=== PATIENT | female | born 1940 | race Asian ===

== ENCOUNTER 2025-06-02 11:00 | Outpatient (RCR) | payer MEDICARE, BC, SELFPAY ==
[2025-05-01 16:02] LABS: Hematocrit* 43.7 % (33.0-51.0); Hemoglobin* 13.6 gm/dL (12.0-16.0); Immature Granulocytes Abs Auto 0.01 K/uL (0.00-0.30); Immature Granulocytes Pct Auto 0.1 %; Mean Corpuscular HGB Conc 31 gm/dL (32-36); Mean Corpuscular Hemoglobin 28 pg (26-34); Mean Corpuscular Volume 89 fL (80-100); RDW Coefficient of Variation % 14.7 % (11.5-15.5); Red Blood Count* 4.90 m/uL (4.00-5.20); White Blood Count* 8.96 K/uL (4.50-11.00)
[2025-05-01 16:04] LABS: Lymphocytes Absolute Auto 4.10 K/uL (0.90-2.90)
[2025-05-01 16:05] LABS: Slide Review Reflex No
[2025-05-01 16:27] LABS: Albumin* 4.8 g/dL (3.3-5.0); Chloride* 104 mmol/L (96-114); Potassium* 4.9 mmol/L (3.6-5.1); Sodium* 139 mmol/L (135-149)
[2025-05-01 16:30] LABS: Alanine Aminotransferase* 16 U/L (4-35); Alkaline Phosphatase* 59 U/L (40-150); Anion Gap 9 mEq/L (7-15); Aspartate Amino Transferase* 28 U/L (12-35); Bilirubin Total* 0.9 mg/dL (0.1-1.5); Blood Urea Nitrogen* 10 mg/dL (7-30); Calcium* 10.2 mg/dL (8.4-10.6); Carbon Dioxide* 26 mmol/L (20-32); Creatinine* 0.7 mg/dL (0.5-1.5); Est. Creatinine Clearance* 32.73; Estimated Glomerular Filt Rate 86 ml/min; Glucose* 104 mg/dL (60-115); Total Protein* 8.6 g/dL (6.0-8.3)
[2025-05-02 11:49] VITALS: BP 161/73; PULSE 79; TEMP 36.7; O2SAT 100
[2025-05-02] MEDS: DEXAMETHASONE 10 MG/ML PF IVP (13:30)
[2025-05-02] MEDS: SODIUM CHLORIDE 0.9 % (FLUSH) 10 ML SYRINGE IVF (13:33)
--- NOTE | 2025-05-03 15:03 | ONC.NURNOTE ---
[employer] called and spoke with patient's daughter Dorita to check in day after chemo and she stated she spoke to her mom this am and her mom said she felt great. They will continue to give medications as scheduled and call if any issues.
[2025-05-09 10:40] LABS: Hematocrit* 39.5 % (33.0-51.0); Hemoglobin* 12.2 gm/dL (12.0-16.0); Immature Granulocytes Abs Auto 0.05 K/uL (0.00-0.30); Immature Granulocytes Pct Auto 0.5 %; Lymphocytes Absolute Auto 3.43 K/uL (0.90-2.90); Mean Corpuscular HGB Conc 31 gm/dL (32-36); Mean Corpuscular Hemoglobin 28 pg (26-34); Mean Corpuscular Volume 91 fL (80-100); RDW Coefficient of Variation % 14.9 % (11.5-15.5); Red Blood Count* 4.35 m/uL (4.00-5.20); White Blood Count* 9.95 K/uL (4.50-11.00)
[2025-05-09 10:42] LABS: Slide Review Reflex No
[2025-05-09 10:54] LABS: Albumin* 4.3 g/dL (3.3-5.0); Chloride* 102 mmol/L (96-114); Sodium* 137 mmol/L (135-149)
[2025-05-09 10:55] LABS: Potassium* 4.9 mmol/L (3.6-5.1)
[2025-05-09 10:57] LABS: Alanine Aminotransferase* 18 U/L (4-35); Anion Gap 9 mEq/L (7-15); Aspartate Amino Transferase* 26 U/L (12-35); Blood Urea Nitrogen* 15 mg/dL (7-30); Carbon Dioxide* 26 mmol/L (20-32); Creatinine* 0.7 mg/dL (0.5-1.5); Est. Creatinine Clearance* 32.73; Estimated Glomerular Filt Rate 86 ml/min
[2025-05-09 10:58] LABS: Alkaline Phosphatase* 49 U/L (40-150); Bilirubin Total* 0.7 mg/dL (0.1-1.5); Calcium* 9.8 mg/dL (8.4-10.6); Glucose* 99 mg/dL (60-115); Total Protein* 7.5 g/dL (6.0-8.3)
[2025-05-09 12:39] VITALS: BP 142/74; PULSE 79; RESP 18; TEMP 36.9; O2SAT 99
[2025-05-09 12:40] VITALS: BP 138/76; PULSE 93
[2025-05-09] MEDS: DEXAMETHASONE 10 MG/ML PF IVP (13:29)
[2025-05-16 09:29] LABS: Hematocrit* 39.6 % (33.0-51.0); Hemoglobin* 12.5 gm/dL (12.0-16.0); Immature Granulocytes Pct Auto 0.3 %; Lymphocytes Absolute Auto 2.20 K/uL (0.90-2.90); Mean Corpuscular HGB Conc 32 gm/dL (32-36); Mean Corpuscular Hemoglobin 29 pg (26-34); Mean Corpuscular Volume 90 fL (80-100); RDW Coefficient of Variation % 15.6 % (11.5-15.5); Red Blood Count* 4.38 m/uL (4.00-5.20); White Blood Count* 11.74 K/uL (4.50-11.00)
[2025-05-16 09:39] LABS: Immature Granulocytes Abs Auto 0.00 K/uL (0.00-0.30); Slide Review Reflex No
[2025-05-16 09:42] LABS: Albumin* 4.5 g/dL (3.3-5.0); Chloride* 103 mmol/L (96-114); Potassium* 5.0 mmol/L (3.6-5.1); Sodium* 137 mmol/L (135-149)
[2025-05-16 09:44] LABS: Blood Urea Nitrogen* 22 mg/dL (7-30); Creatinine* 0.8 mg/dL (0.5-1.5); Est. Creatinine Clearance* 32.73; Estimated Glomerular Filt Rate 74 ml/min
[2025-05-16 09:45] LABS: Alanine Aminotransferase* 20 U/L (4-35); Alkaline Phosphatase* 51 U/L (40-150); Anion Gap 7 mEq/L (7-15); Aspartate Amino Transferase* 30 U/L (12-35); Bilirubin Total* 1.0 mg/dL (0.1-1.5); Calcium* 10.3 mg/dL (8.4-10.6); Carbon Dioxide* 27 mmol/L (20-32); Glucose* 101 mg/dL (60-115); Total Protein* 8.1 g/dL (6.0-8.3)
[2025-05-16] MEDS: SODIUM CHLORIDE 0.9 % (FLUSH) 10 ML SYRINGE IVF (11:45)
[2025-05-16] MEDS: DEXAMETHASONE 10 MG/ML PF IVP (11:50)
[2025-05-19 11:53] VITALS: BP 122/71; PULSE 76; RESP 18; TEMP 36.4; O2SAT 100
[2025-05-19 11:54] VITALS: BP 107/69; PULSE 83; RESP 16; TEMP 36.4; O2SAT 97
[2025-05-22 11:42] VITALS: BP 109/68; PULSE 77; RESP 13; TEMP 36.4; O2SAT 99
[2025-05-22 11:43] VITALS: BP 108/68; PULSE 84; RESP 15; TEMP 36.4; O2SAT 96
[2025-05-22] MEDS: SODIUM CHLORIDE 0.9 % (FLUSH) 10 ML SYRINGE IVF (12:01)
--- NOTE | 2025-05-22 14:56 | ONC.NURNOTE ---
Patient in clinic today for IVF's. Per her son they are trying to see if somewhere closer to home can do his mom's IVF's now that she is done with radiation. Advised them that if he finds a place that will work with them to let the clinic know and we can fax orders and notes. He will call if they find somewhere. She is scheduled for IVF again on 06/02 per his request. He will call before than if she is showing S/S of dehydration.
--- NOTE | 2025-05-23 15:18 | ONC.NURNOTE ---
Prn IVF orders faxed to [facility] in [place]. . Pt daughter aware orders, demographics, and last MD note faxed.
--- NOTE | 2025-05-29 14:39 | ONC.NURNOTE ---
Patient's daughter called today requesting additional orders for patient to have IVF at [facility]. Per daughter they only have orders until 06/09 and [facility] won't let them schedule more fluid appts after that without orders. Per the daughter they don't have much left for appt times and she wants to get her mom scheduled. RN will check in with CAUSE ANALYST on fluid orders and call her back. On chart review in last MD note patient was to get IVF weekly x's 3 with nurse assessment. Patient is scheduled to be seen in [place] at [facility] in 06/16/25. Per CAUSE ANALYST patient needs to be seen in our clinic for an assessment to determine further need for IVF after 06/09. RN called patient's daughter back and told her patient needs to be seen here at the [facility] prior to us being able to order more IVF. RN offered to schedule them with Dolores Dial PA-C with IVF to follow but daughter does not want to make a trip here at this time. She is going to reach out to patient's PCP, radiation, or [facility] to see if they will order IVF for patient beyond 06/09. She will call clinic back with an update.
== END 2025-10-28 23:59 | disposition home or self-care (01) ==
LOC: CCIC 11:00
PROVIDERS: Physician Assistant; Visit Provider Clinical Nurse Specialist
DX: C06.9 Malignant neoplasm of mouth, unspecified (principal)
CPT/HCPCS: 36415; 80053; 83735; 85025; 96360; 96375; 96413; 99202; 99205; 99214; 99215; G0463; J1100; J2469; J7030; J7050; J9045